=== PATIENT | male | born 1980 | race Caucasian/White ===

== ENCOUNTER 2020-03-17 08:42 | Outpatient (RCR) | payer MEDICAID, SELFPAY | END 2020-04-07 08:20 | disposition home or self-care (01) | LOC: HO.PTCHIC 08:42 | PROVIDERS: PCP Nurse Practitioner Family; Visit Provider Nurse Practitioner Family | DX: M25.551 Pain in right hip (principal) | CPT/HCPCS: 97110; 97161 ==

== ENCOUNTER → 2020-03-31 13:58 | Outpatient (BNVA) | payer MEDICAID, SELFPAY | PROVIDERS: PCP Nurse Practitioner Family; Referring Provider Nurse Practitioner Family; Visit Provider Surgery | DX: D17.1 Benign lipomatous neoplasm of skin and subcutaneous tissue of trunk (principal) | CPT/HCPCS: 99212 ==

== ENCOUNTER 2020-04-08 10:43 | Outpatient (REF) | payer MEDICAID, SELFPAY ==
[2020-04-08 11:08] VITALS: BP 145/87; PULSE 91; RESP 17; TEMP 37.4; O2SAT 98; BMI 30.9
[2020-04-08 13:27] VITALS: BP 108/72; PULSE 74; RESP 16; O2SAT 96
--- NOTE | 2020-04-08 13:31 | P.BOP_ITS ---
Brief Operative Note Date of Service: 04/08/20 Pre-op diagnosis: Lipoma midback Post-op diagnosis: same Procedure: Excision of lipoma midback Implants: Non Surgeon: Esau Cain MD Anesthesia: local Community Engagement Representative: Lashell Burnham Estimated blood loss (mL): 2 Pathology: other (Lipoma midback) Condition: stable Disposition: other (Home)
--- NOTE | 2020-04-08 13:32 | W.PM.OPN ---
Operative Note Operative Note Date of Service: 04/08/20 Narrative: Preoperative diagnosis: Lipoma midback Postoperative diagnosis: Same Procedure: Excision of lipoma midback Surgeon: Esau Cain MD Post Hole Digging Machine Operator: SHELBI Contreras Anesthesia local Indications for procedure: This is a 39-year-old male patient with a soft tissue mass located in the mid back which is increasing in size and causing discomfort. The patient has requested excision. Operative findings: Patient was found to have a 3 cm by 2 cm soft tissue mass consistent with a lipoma Specimen: Lipoma midback Complications: None Estimated blood loss: 2 mL Procedure details: Patient was brought to the minor surgery suite and placed in a prone position. After assuring informed consent and confirming the site of surgery in the mid back patient's skin was prepped with Betadine over the lipoma and draped in a sterile fashion. Local anesthesia consisting of 1% lidocaine with epinephrine was then infiltrated in a transverse fashion directly over the lipoma. Incision was made with a 15 blade carried out through subcutaneous tissue up to the outer surface of the lipoma. Sharp dissection was then used to dissect the lipoma from the surrounding subcutaneous tissue. The lesion was excised and sent to pathology for further examination. Hemostasis was assured using light pressure. Dermis was then reapproximated using interrupted 3-0 Polysorb sutures. Skin was closed using a running subcuticular 4-0 Polysorb suture. Steri-Strips 2 x 2 gauze and Tegaderm were then applied. The patient tolerated the procedure well. He was discharged to home in stable condition.
== END 2020-04-08 10:44 | disposition home or self-care (01) ==
LOC: HO.MS 10:43
PROVIDERS: Visit Provider Surgery
PROC: (CPT 21931; principal; 2020-04-08 12:00)
DX: D17.1 Benign lipomatous neoplasm of skin and subcutaneous tissue of trunk (principal)
CPT/HCPCS: 21931; 88304

== ENCOUNTER 2020-06-04 13:27 | Outpatient (REF) | payer MEDICAID, SELFPAY ==
--- NOTE | ~2020-06-04 | XR_ITS ---
EXAMINATION: XR HIP, RIGHT CLINICAL INFORMATION: Pain COMPARISON: None TECHNIQUE: Two views of the right hip. FINDINGS: Bones and soft tissues are normal. No fracture. Alignment is anatomic. Hip joint space is maintained. XR/XR hip RT min 2V IMPRESSION: Normal right hip.
== END 2020-06-04 13:28 | disposition home or self-care (01) ==
LOC: HO.XRAY 13:27
PROVIDERS: Visit Provider Nurse Practitioner Family
DX: M25.551 Pain in right hip (principal)
CPT/HCPCS: 73502

== ENCOUNTER 2021-03-22 12:56 | Emergency (ER) | payer MEDICAID, SELFPAY ==
[2021-03-22 13:57] VITALS: BP 125/90; BP 139/86; PULSE 106; RESP 18; TEMP 37.7; O2SAT 95; O2SAT 99; BMI 30.9
[2021-03-22 14:36] LABS: MANUAL DIFF FLAG NO
[2021-03-22 14:37] LABS: Basophils Percent Auto 0.3 % (0-2); Eosinophils Absolute Auto 0.1 X10*3/uL (0.0-0.4); Hematocrit 42.5 % (42.0-52.0); Hemoglobin 14.2 g/dl (14.0-18.0); Imm Gran Abs Auto 0.04 X10*3/uL (0.00-0.03); Imm Gran Pct Auto 0.4 % (0.0-0.4); Lymphocytes Absolute Auto 0.4 X10*3/uL (1.2-4.9); Lymphocytes Percent Auto 4.1 % (20-40); Mean Corpuscular HGB Conc 33.4 g/dl (31.0-36.0); Mean Corpuscular Hemoglobin 28.1 pg (27.0-33.0); Monocytes Absolute Auto 0.9 X10*3/uL (0.1-1.2); Monocytes Percent Auto 9.2 % (2-11); Platelet Count 268 X10*3/uL (160-400); Red Blood Count 5.06 X10*6/uL (4.60-5.80); White Blood Count 9.5 X10*3/uL (4.8-10.8)
[2021-03-22 14:41] LABS: Appearance Urine CLEAR; Color Urine YELLOW; Glucose Urine UA NEG (NEG); Leukocyte Esterase Urine NEG (NEG); Nitrite Urine NEG (NEG); Specific Gravity - Urine 1.025 (1.005-1.025); UACC Culture Trigger NO; Urine Blood 2+ (NEG); Urine Ketones NEG (NEG); Urine Protein 1+ MG/DL (NEG-TRACE)
[2021-03-22 14:47] LABS: COVID-19 Test Positive (Negative)
[2021-03-22 14:51] LABS: WBC Urine 0-2 /HPF (0-4)
[2021-03-22 14:52] LABS: Bacteria Urine TRACE /LPF; Mucus Urine 1+ /LPF; Squamous Epithelial Cell Urine TRACE /LPF
[2021-03-22 14:55] LABS: Alanine Aminotransferase 30 U/L (0-40); Albumin Level 4.5 g/dL (3.5-5.0); Alkaline Phosphatase 104 U/L (39-117); Anion Gap 12 (12-20); Aspartate Amino Transferase 22 U/L (5-37); Bilirubin Total 0.4 mg/dL (0.0-1.0); Blood Urea Nitrogen 9 mg/dL (9-16); Calcium 9.4 mg/dL (8.4-10.2); Carbon Dioxide 30 mmol/L (22-29); Chloride 102 mmol/L (96-108); Creatinine Clr Calc Pharmacy 93.7; Estimated Glomerular Filt Rate > 60; Glucose Random 110 mg/dL (60-115); Potassium 4.2 mmol/L (3.3-5.1); Sodium 140 mmol/L (135-145); Total Protein 7.6 g/dL (6.5-8.0)
== END 2021-03-22 19:59 | disposition left against medical advice (07) ==
PROVIDERS: Emergency Provider Emergency Medicine
DX: R53.1 Weakness (principal); Z20.822 Contact with and (suspected) exposure to COVID-19; Z79.899 Other long term (current) drug therapy
CPT/HCPCS: 36415; 80053; 81001; 85025; 87635; 99282; 99283

== ENCOUNTER 2024-04-16 08:18 | Outpatient (REF) | payer MEDICAID, SELFPAY ==
[2024-04-16 12:03] LABS: Hematocrit 41.4 % (42.0-52.0); Hemoglobin 13.8 g/dl (14.0-18.0)
[2024-04-16 12:13] LABS: Estimated Average Glucose 137 mg/dL; Hemoglobin A1c % 6.4 % (<6.0); Total Hemoglobin (HGBA1C) 3598.4275 umol/L
[2024-04-16 12:26] LABS: Alanine Aminotransferase 43 U/L (0-40); Albumin Level 4.1 g/dL (3.5-5.0); Alkaline Phosphatase 88 U/L (39-117); Anion Gap 6 (12-20); Aspartate Amino Transferase 25 U/L (5-37); Bilirubin Total 0.4 mg/dL (0.0-1.0); Blood Urea Nitrogen 11 mg/dL (9-16); Calcium 8.6 mg/dL (8.4-10.2); Carbon Dioxide 32 mmol/L (22-29); Chloride 104 mmol/L (96-108); Cholesterol 157 mg/dL (<200); Estimated Glomerular Filt Rate > 60; Glucose Random 125 mg/dL (60-115); HDL Cholesterol 43 mg/dL (>40); LDL Cholesterol Calculated 104 mg/dL (<100); Potassium 3.3 mmol/L (3.3-5.1); Sodium 139 mmol/L (135-145); Total Protein 7.2 g/dL (6.5-8.0); Triglycerides 54 mg/dL (<150)
[2024-04-16 12:44] LABS: TSH reflex Free T4 1.44 uIU/mL (0.32-4.0)
== END 2024-04-16 08:19 | disposition home or self-care (01) ==
LOC: HO.HHCL 08:18
PROVIDERS: Visit Provider Nurse Practitioner Primary Care
DX: R51.9 Headache, unspecified (principal); R73.03 Prediabetes; R40.0 Somnolence
CPT/HCPCS: 36415; 80053; 80061; 83036; 84443; 85014; 85018